=== PATIENT | female | born 1945 | race Caucasian/White ===

== ENCOUNTER 2018-12-23 19:41 | Emergency (ER) | payer OTHER, MEDICARE ==
[2018-12-23 20:02] VITALS: TEMP 98.1; BMI 24.0
[2018-12-23] MEDS ORDERED: SODIUM CHLORIDE 1,000 ML IV STA (20:58)
[2018-12-23] MEDS ORDERED: ONDANSETRON 4 MG/2 ML VIAL IVPUSH ONE (20:58)
--- NOTE | 2018-12-23 20:59 | PDOC ---
History of Present Illness - General Chief Complaint: Nausea Stated Complaint: NAUSEA Time Seen by Provider: 12/23/18 20:57 - History of Present Illness Initial Comments: 12/23/18 21:56 73F with pmh of IBS and depression rpesents to the ED complaining of now- resolved nausea, stressors at home (irrascible, unpredictable daughter) and usual cramping that she's accustomed to when she has IBS flares. This feels like an IBS flare to her. She wishes to have her abdominal cramps controlled at this time. Past History - Past Medical History Allergies/Adverse Reactions: Allergies Allergy/AdvReac Type Severity Reaction Status Date / Time codeine [Codeine] Allergy Severe Swelling, Verified 12/23/18 20:02 DIFF BREATHING latex Allergy Severe Rash, Verified 12/23/18 20:02 GENERALIZED SWELLING Home Medications: Ambulatory Orders Buspirone HCl [Buspar] 30 mg PO BID 11/19/12 Venlafaxine HCl ER [Effexor Xr -] 150 mg PO DAILY 12/22/13 Isaac/D3/Mag11/Zinc/Radiology Technologist/Jonathan/Bor [Caltrate 600+D Plus Tablet] 1 each PO DAILY 01/05 Multivitamins [Tab-A-Vit -] 1 tab PO DAILY 12/27/15 Pantoprazole Sodium [Protonix] 40 mg PO DAILY 12/27/15 Naproxen Sodium [Aleve] 220 mg PO BID #0 tablet 12/31/15 Tramadol HCl 50 - 100 mg PO Q6H PRN #40 tablet MDD 8 12/31/15 Anemia: Yes Asthma: No Cancer: No Cardiac Disorders: Yes ("IRREGULAR HEARTBEAT; BUNDLE BRANCH BLOCK") CVA: No COPD: No CHF: No Dementia: No Diabetes: No GI Disorders: Yes (IBS) Disorders: No HTN: No Hypercholesterolemia: No Liver Disease: No Seizures: No Thyroid Disease: Yes (HYPERPARATHYROIDISM) - Surgical History Abdominal Surgery: No Appendectomy: Yes Cardiac Surgery: No Cholecystectomy: Yes Lung Surgery: No Neurologic Surgery: No Orthopedic Surgery: Yes (RIGHT KNEE ARTHROSCOPY) - Suicide/Smoking/Psychosocial Hx Smoking History: Never smoked Have you smoked in the past 12 months: No Information on smoking cessation initiated: No Hx Alcohol Use: No Drug/Substance Use Hx: No Substance Use Type: None Hx Substance Use Treatment: No Review of Systems - Review of Systems Able to Perform ROS?: Yes Is the patient limited Gibraltarian proficient: No Constitutional: No: Symptoms Reported HEENTM: No: Symptoms Reported Respiratory: No: Symptoms reported Cardiac (ROS): No: Symptoms Reported ABD/GI: Yes: See HPI : No: Symptoms Reported Musculoskeletal: No: Symptoms Reported All Other Systems: Reviewed and Negative *Physical Exam - Vital Signs Last Vital Signs Temp Pulse Resp BP Pulse Ox 98.1 F 98 H 20 140/90 99 12/23/18 19:41 12/23/18 19:41 12/23/18 19:41 12/23/18 19:41 12/23/18 19:41 - Physical Exam General Appearance: Yes: Nourished, Appropriately Dressed. No: Apparent Distress HEENT: positive: EOMI, ROMA, Normal ENT Inspection Respiratory/Chest: positive: Lungs Clear, Normal Breath Sounds. negative: Chest Tender, Respiratory Distress Cardiovascular: positive: Regular Rhythm, Regular Rate, S1, S2 Gastrointestinal/Abdominal: positive: Normal Bowel Sounds, Flat, Soft. negative : Tender Extremity: positive: Normal Capillary Refill, Normal Inspection Neurologic: positive: Fully Oriented, Other (depressed affect. ) ED Treatment Course - LABORATORY CBC & Chemistry Diagram: 12/23/18 21:10 12/23/18 20:58 Medical Decision Making - Medical Decision Making 12/23/18 22:54 Unclear story whether this is IBS discomfort or psych relief from stressors that is wanted. All labs negative. Patient says she's now asymptomatic and wishes to go home. *DC/Admit/Observation/Transfer Diagnosis at time of Disposition: IBS (irritable bowel syndrome) - Discharge Dispostion Disposition: HOME Condition at time of disposition: Fair Decision to Admit order: No - Referrals Referrals: Fabio Jain MD [Primary Care Provider] - - Patient Instructions Printed Discharge Instructions: Natural and Alternative Treatment Study Report : Peppermint and Irritable Bakari Additional Instructions: Come back to the emergency department for any new, worsening or concerning symptom. Follow up with your PCP. - Post Discharge Activity
[2018-12-23] MEDS ORDERED: ONDANSETRON 4 MG/2 ML VIAL ONE (21:02)
[2018-12-23 21:29] LABS: EPI CELLS 4.4 /HPF (0-5/HPF); HYALINE CASTS 4 /lpf (0-8); URINE APPEARANCE CLEAR; URINE BACTERIA 57.1 /hpf (NEGATIVE); URINE BILIRUBIN NEGATIVE (NEGATIVE); URINE COLOR YELLOW; URINE GLUCOSE (UA) NEGATIVE (NEGATIVE); URINE KETONE 1+ (NEGATIVE); URINE LEUK ESTERASE 1+ (NEGATIVE); URINE NITRITE NEGATIVE (NEGATIVE); URINE PROTEIN 2+ (NEGATIVE); URINE RBC 3 /hpf (0-4); URINE UROBILINOGEN 0.2 mg/dL (0.2-1.0); URINE WBC 8 /hpf (0-5)
[2018-12-23 21:55] LABS: ALBUMIN 4.7 g/dl (3.4-5.0); BILIRUBIN,TOTAL 0.8 mg/dL (0.2-1); CALCIUM 9.4 mg/dL (8.5-10.1); CREATININE 0.6 mg/dL (0.55-1.3); TOT PROT 7.6 g/dl (6.4-8.2)
[2018-12-23 22:10] LABS: BASO % 0.7 % (0-2.0); EOS % 0.7 % (0-4.5); HEMATOCRIT 42.7 % (32.4-45.2); MCH 20.8 pg (25.7-33.7); MCHC 30.4 g/dl (32.0-36.0); MEAN CELL VOLUME 68.4 fl (80-96); MONO % 4.4 % (3.8-10.2); NEUT % 81.2 % (42.8-82.8); RBC 6.24 M/mm3 (3.60-5.2); RDW 17.1 % (11.6-15.6); WHITE BLOOD COUNT 11.4 K/mm3 (4.0-10.0)
[2018-12-23 22:36] LABS: PLATELET COUNT 165 K/MM3 (134-434)
[2018-12-23 22:37] LABS: ANISOCYTOSIS 1+; PLATELET ESTIMATE DECREASED
[2018-12-23 22:59] VITALS: BP 169/91; PULSE 68
--- NOTE | 2018-12-23 23:11 | PDOC ---
Documentation entered by Ciera Gaines SCRIBE, acting as scribe for Shiela Clark MD. Shiela Clark MD: This documentation has been prepared by the Eder gallego Sammi, SCRIBE, under my direction and personally reviewed by me in its entirety. I confirm that the documentation accurately reflects all work, treatment, procedures, and medical decision making performed by me. Attending Attestation - Resident Resident Name: Dax Tiwari - ED Attending Attestation I have performed the following: I have examined & evaluated the patient, The case was reviewed & discussed with the resident, I agree w/resident's findings & plan, Exceptions are as noted - HPI HPI: 12/23/18 22:17 The patient is a 73 year old female, with a significant PMH of IBS and depression, who presents to the emergency department for evaluation of now resolved nausea and vomiting. The patient states she is experiencing symptoms similar to her IBS. She denies any other complaints. - Physicial Exam PE: 12/23/18 23:03 wnwd 73 yo female states she is living with a stressful home situation . she has an episode of nausea and some epigastric discomfort head ncat eyes issac eomi lungs cta b/l cvs [id number] abd no rebound,no guarding skin warm and dry extremities no deformities, no tenderness no flank pain neuro axox3,ambulatory psych appropriate - Medical Decision Making 12/23/18 23:07 pt denies any fever,chills, dysuria, vomiting,diarrhea,chest pain or shortness of breath benign abd exam ekg nsr @ 62 bpm, LBBB 12/23/18 23:09 she said that she felt like she is starting to have problems with her IBS again pt discharged to followup with her GI doctor
--- NOTE | 2018-12-24 09:58 | EKG ---
Test Reason : Blood Pressure : / mmHG Vent. Rate : 062 BPM Atrial Rate : 062 BPM P-R Int : 176 ms QRS Dur : 158 ms QT Int : 472 ms P-R-T Axes : 052 -32 119 degrees QTc Int : 479 ms POOR DATA QUALITY, INTERPRETATION MAY BE ADVERSELY AFFECTED NORMAL SINUS RHYTHM LEFT AXIS DEVIATION LEFT BUNDLE BRANCH BLOCK ABNORMAL ECG NO PREVIOUS ECGS AVAILABLE Confirmed by MD YUDY, BEENA ([id number]) on 12/24/2018 9:58:44 AM Referred By: Confirmed By:BEENA JIMENES MD
== END 2018-12-23 23:28 | disposition home or self-care (01) ==
LOC: JER 19:41
PROC: 3E033GC Introduction of Other Therapeutic Substance into Peripheral Vein, Percutaneous Approach (ICD-10-PCS; principal; 2018-12-23)
DX: K58.9 Irritable bowel syndrome, unspecified (principal); F32.9 Major depressive disorder, single episode, unspecified; Z63.8 Other specified problems related to primary support group; Z62.820 Parent-biological child conflict
CPT/HCPCS: 36415; 80053; 81003; 85025; 87086; 93005; 93010; 96374; 99281-25; J7030

== ENCOUNTER 2018-12-30 17:40 | Emergency (ER) | payer OTHER, MEDICARE ==
[2018-12-30 17:49] VITALS: BMI 24.0
--- NOTE | 2018-12-30 18:42 | PDOC ---
History of Present Illness - General Chief Complaint: Pain Stated Complaint: ABDOMINAL PAIN Time Seen by Provider: 12/30/18 18:41 - History of Present Illness Initial Comments: 12/30/18 20:12 The patient is a 73 year old female with a history of IBS, Hyperparathyroidism, Arrhythmia who presents for evaluation of abdominal pain, nausea, and diarrhea. The patient reports a 1-2 week history of poorly described epigastric abdominal pain with associated nausea and multiple episodes of diarrhea. She presented to the ED on 12/23/18 for these same complaints and was discharged after improvement in her symptoms. However, she reports continued and worsening pain since that time prompting her presentation to the ED for further evaluation. She otherwise denies fevers, chills, SOB, chest pain, vomiting, or changes with bowel movements. She denies any exacerbating or relieving factors as well. Past History - Past Medical History Allergies/Adverse Reactions: Allergies Allergy/AdvReac Type Severity Reaction Status Date / Time codeine [Codeine] Allergy Severe Swelling, Verified 12/30/18 17:45 DIFF BREATHING latex Allergy Severe Rash, Verified 12/30/18 17:45 GENERALIZED SWELLING Home Medications: Ambulatory Orders Buspirone HCl [Buspar] 30 mg PO BID 11/19/12 Venlafaxine HCl ER [Effexor Xr -] 150 mg PO DAILY 12/22/13 Isaac/D3/Mag11/Zinc/Shift Stacker/Jonathan/Bor [Caltrate 600+D Plus Tablet] 1 each PO DAILY 01/05 Multivitamins [Tab-A-Vit -] 1 tab PO DAILY 12/27/15 Pantoprazole Sodium [Protonix] 40 mg PO DAILY 12/27/15 Naproxen Sodium [Aleve] 220 mg PO BID #0 tablet 12/31/15 Tramadol HCl 50 - 100 mg PO Q6H PRN #40 tablet MDD 8 12/31/15 Famotidine [Pepcid -] 20 mg PO DAILY #14 tablet 12/31/18 Loperamide HCl [Imodium -] 2 mg PO BID #14 capsule 12/31/18 Anemia: Yes Asthma: No Cancer: No Cardiac Disorders: Yes ("IRREGULAR HEARTBEAT; BUNDLE BRANCH BLOCK") CVA: No COPD: No CHF: No Dementia: No Diabetes: No GI Disorders: Yes (IBS) Disorders: No HTN: No Hypercholesterolemia: No Liver Disease: No Seizures: No Thyroid Disease: Yes (HYPERPARATHYROIDISM) - Surgical History Abdominal Surgery: No Appendectomy: Yes Cardiac Surgery: No Cholecystectomy: Yes Lung Surgery: No Neurologic Surgery: No Orthopedic Surgery: Yes (RIGHT KNEE ARTHROSCOPY) - Immunization History Immunization Up to Date: No - Suicide/Smoking/Psychosocial Hx Smoking History: Never smoked Have you smoked in the past 12 months: No Information on smoking cessation initiated: No Hx Alcohol Use: No Drug/Substance Use Hx: No Substance Use Type: None Hx Substance Use Treatment: No Review of Systems - Review of Systems Comments:: 12/30/18 20:20 Constitutional: No fevers, chills, fatigue, malaise HEENT: No Rhinorrhea, nasal congestion, visual changes Cardiovascular: No chest pain, syncope, palpitations, lightheadedness Respiratory: No Cough, SOB, Hemoptysis, Gastrointestinal: Abdominal pain, Nausea, Diarrhea. No Vomiting, Constipation, Melena Genitourinary: No Dysuria, Frequency, Urgency, Hesitancy, Hematuria, Flank pain Musculoskeletal: No Myalgia, arthralgia Skin: No rashes, itching, bruising, pallor Neurologic: No Headache, Dizziness, Numbness, Weakness, or Tingling Psychiatric: No Hallucinations. No SI or HI *Physical Exam - Vital Signs Last Vital Signs Temp Pulse Resp BP Pulse Ox 98.1 F 83 16 181/78 H 100 12/30/18 17:45 12/30/18 17:45 12/30/18 17:45 12/30/18 17:45 12/30/18 17:45 - Physical Exam Comments: 12/30/18 20:20 General Appearance: Nourished. No Apparent Distress HEENT: EOMI, ROMA. No Pharyngeal Erythema, Tonsillar Exudate, Tonsillar Erythema Neck: No Cervical Lymphadenopathy Respiratory/Chest: Lungs Clear, Normal Breath Sounds. No Crackles, Rales, Rhonchi, Wheezing Cardiovascular: Regular Rhythm, Regular Rate. No Murmur, Gallops, Rubs Gastrointestinal/Abdominal: Normal Bowel Sounds, Soft. Epigastric discomfort with palpation on exam. No Guarding, Rebound, Musculoskeletal: No CVA Tenderness Extremity: Normal Capillary Refill Integumentary: Normal Color, Dry, Warm Neurologic: Fully Oriented, Alert, Normal Mood/Affect, Normal Response, ED Treatment Course - LABORATORY CBC & Chemistry Diagram: 12/30/18 19:30 12/30/18 19:30 Medical Decision Making - Medical Decision Making 12/30/18 20:21 The patient is a 73 year old female with a history of IBS, Hyperparathyroidism, Arrhythmia who presents for evaluation of abdominal pain, nausea, and diarrhea. Differential includes but is not limited to: Gastritis, Pancreatitis, ACS, Colitis, Infectious, Metabolic Derangement. Given the patient's history and physical exam, we will obtain a cbc, cmp, troponing, lipase, esr, crp, lactate, ekg, CT abdomen/pelvis to evaluate further. We will treat with iv fluids, zofran, pepcid, morphine and continue to monitor and reassess while here in the ED. 12/31/18 01:11 CBC, cmp, troponin, lipase, ESRA, CRPm Lactate are unremarkable. CT abdomen/ pelvis is unremarkable as preliminarily read by our production machine tender radiologist. The patient was reassessed and reports improvement in their symptoms. We are comfortable discharging the patient home in stable condition. The patient notes that she has follow up schedule with her GI specialist in 2 days. Patient made aware of impression and plan, return precautions discussed including but not limited to worsening pain or symptoms, fevers, or signs of infection, chest pain , respiratory distress, inability to tolerate oral intake, dehydration, syncope , or neurologic changes. The patient is to follow up with PMD and specialist as recommended within 1 week, follow up information provided and the patient will call for an appointment. The patient is to take medications as instructed for duration of time and continue with supportive care, avoid triggers and precipitants. Patient is safe for outpatient follow-up. *DC/Admit/Observation/Transfer Diagnosis at time of Disposition: IBS (irritable bowel syndrome) Qualifiers: Irritable bowel syndrome type: with diarrhea Qualified Code(s): K58.0 - Irritable bowel syndrome with diarrhea - Discharge Dispostion Disposition: HOME Condition at time of disposition: Stable Decision to Admit order: No - Prescriptions Prescriptions: Famotidine [Pepcid -] 20 mg PO DAILY #14 tablet Loperamide HCl [Imodium -] 2 mg PO BID #14 capsule - Referrals Referrals: Fabio Jain MD [Primary Care Provider] - - Patient Instructions Printed Discharge Instructions: DI for Irritable Bowel Syndrome Additional Instructions: 1) Please follow-up with your primary care doctor in the next 2-3 days. Please call tomorrow to schedule a follow up appointment. If you cannot follow up with your doctor within 1 week please return to the Emergency Department for any urgent issues. 2) Your laboratory / imaging results were normal here in the ER. You are to keep your follow up appointment with your GI specialist in 2 days. 3) If you have any worsening of symptoms or any other concerns please return to the ER immediately. Return if worsening symptoms including fevers, headache, vomiting, visual or hearing disturbances, abdominal pain, chest pain, shortness of breath, syncope, dehydration, inability to take things by mouth/vomiting, altered mental status, or worsening concerning symptoms. 4) Please continue taking your home medications as directed. Your medications on discharge include Imodium, Pepcid. - Post Discharge Activity
[2018-12-30] MEDS ORDERED: FAMOTIDINE 20 MG/50 ML IVPB 20 MG/50 ML MG IVPB ONE ×2 (19:01→19:42)
[2018-12-30] MEDS ORDERED: ACETAMINOPHEN 1000 MG/100 ML VIAL (NON FORMULARY) IVPB ONE (19:01)
[2018-12-30] MEDS ORDERED: ONDANSETRON 4 MG/2 ML VIAL IVPUSH ONE (19:01)
[2018-12-30] MEDS ORDERED: SODIUM CHLORIDE 1,000 ML IV STA (19:01)
[2018-12-30 19:33] VITALS: PULSE 84
[2018-12-30] MEDS ORDERED: ACETAMINOPHEN INJECTION 100 ML IVPB ONE (19:41)
[2018-12-30] MEDS ORDERED: ONDANSETRON 4 MG/2 ML VIAL ONE (19:41)
[2018-12-30 19:56] LABS: BASO % 0.7 % (0-2.0); EOS % 0.4 % (0-4.5); HEMATOCRIT 38.8 % (32.4-45.2); LYMPH % 11.5 % (8-40); MCH 20.9 pg (25.7-33.7); MCHC 30.8 g/dl (32.0-36.0); MEAN CELL VOLUME 67.8 fl (80-96); MEAN PLT VOLUME 11.4 fl (7.5-11.1); MONO % 6.1 % (3.8-10.2); NEUT % 81.3 % (42.8-82.8); PLATELET COUNT 150 K/MM3 (134-434); RBC 5.73 M/mm3 (3.60-5.2); RDW 16.6 % (11.6-15.6); WHITE BLOOD COUNT 7.6 K/mm3 (4.0-10.0)
[2018-12-30] MEDS ORDERED: morphine CARPU-JECT 4 MG/1 ML DISP.SYRIN IVPUSH ONE (20:10)
[2018-12-30 20:35] LABS: ALBUMIN 4.1 g/dl (3.4-5.0); ALK PHOS 63 U/L (45-117); ANION GAP 4 MMOL/L (8-16); BILIRUBIN,TOTAL 0.9 mg/dL (0.2-1); BLOOD UREA NITROGEN 9.6 mg/dL (7-18); CALCIUM 9.4 mg/dL (8.5-10.1); CHLORIDE 106 mmol/L (98-107); CO2 28 mmol/L (21-32); CREATININE 0.6 mg/dL (0.55-1.3); GLUCOSE,RANDOM 108 mg/dL (74-106); LIPASE 134 U/L (73-393); POTASSIUM 3.4 mmol/L (3.5-5.1); SGOT/AST 77 U/L (15-37); SGPT/ALT 52 U/L (13-61); SODIUM 137 mmol/L (136-145); TOT PROT 6.9 g/dl (6.4-8.2)
[2018-12-30] MEDS ORDERED: MORPHINE SULFATE 2 MG/ML VIAL ONE (20:50)
[2018-12-30 21:19] LABS: ERYTHROCYTE SEDIMENTATION RATE 23 mm/hr (0-30)
[2018-12-30] MEDS ORDERED: MAG HYDROX/AL HYDROX/SIMETH 30 ML UNIT-DOSE CUP PO ONE (22:05)
[2018-12-30] MEDS ORDERED: POTASSIUM CHLORIDE TABS 20 MEQ TABLET.ER (FP) PO ONE ×2 (22:05→23:28)
[2018-12-30] MEDS ORDERED: MAG HYDROX/AL HYDROX/SIMETH 30 ML UNIT-DOSE CUP ONE (23:29)
[2018-12-30 23:32] LABS: ANISOCYTOSIS 1+
--- NOTE | 2018-12-31 00:35 | PDOC ---
Documentation entered by Meera Barnard SCRIBE, acting as scribe for Shiela Clark MD. Shiela Clark MD: This documentation has been prepared by the Evon gallego Adrianna, SCRIBE, under my direction and personally reviewed by me in its entirety. I confirm that the documentation accurately reflects all work, treatment, procedures, and medical decision making performed by me. Attending Attestation - Resident Resident Name: Damian Kirby - ED Attending Attestation I have performed the following: I have examined & evaluated the patient, The case was reviewed & discussed with the resident, I agree w/resident's findings & plan, Exceptions are as noted - HPI HPI: The patient is a 73 year old female, with a significant PMH of bundle branch block, IBS, and depression, who presents to the emergency department today complaining of abdominal pain, nausea, and diarrhea for one week. Patient was seen in the ED one week ago for the same complaints, and states she felt better during her visit but her symptoms returned after leaving. She endorses epigastric cramping, which induces nausea. Patient also complains of profuse diarrhea since her last visit. The patient denies chest pain, shortness of breath, headache and dizziness. Denies fever, chills, vomit, and constipation. Denies dysuria, frequency, urgency and hematuria. Allergies: Codeine, latex Past surgical history: Cholecystectomy, right knee arthroscopy Social history: No reported PCP: Dr. Fabio Jain 12/30/18 19:52 - Physicial Exam PE: 12/30/18 19:35 This 73-year-old female presents with persistent epigastric pain, nausea and diarrhea for one week Head normocephalic/atraumatic. eyes issac eomi Neck supple, no bruits. Lungs are clear to auscultation bilaterally CVS regular rate and rhythm S1, S2 Abdomen epigastric epigastric tenderness but no rebound or guarding. Skin warm and dry. Extremities full range of motion, no edema and no deformity. No CVA tenderness. Psych anxious - Medical Decision Making 12/30/18 19:36 73 yo female with h/o IBS and 1 week of upper abd pain,nausea,diarrhea 12/31/18 01:14 labs reviewed lfts and glucose and renal function are wnl ct scan abd/pel: no sbo,no colitis.no diverticulitis,no masses,no fluid collections,liquid stool noted pt had an appt with her GI specialist this Sun imp diarrhea plan GI appt this Sun
[2018-12-31 01:30] VITALS: BP 164/70; TEMP 97.4
--- NOTE | 2018-12-31 12:44 | EKG ---
Test Reason : Blood Pressure : / mmHG Vent. Rate : 084 BPM Atrial Rate : 084 BPM P-R Int : 164 ms QRS Dur : 146 ms QT Int : 418 ms P-R-T Axes : 057 -36 116 degrees QTc Int : 493 ms SINUS RHYTHM WITH PREMATURE ATRIAL COMPLEXES LEFT AXIS DEVIATION LEFT BUNDLE BRANCH BLOCK LEFT VENTRICULAR HYPERTROPHY WITH QRS WIDENING AND REPOLARIZATION ABNORMALITY ABNORMAL ECG Confirmed by Igor Avery MD ([id number]) on 12/31/2018 12:43:56 PM Referred By: Confirmed By:Igor Avery MD
== END 2018-12-31 01:30 | disposition home or self-care (01) ==
LOC: JER 17:40
PROC: 3E0337Z Introduction of Electrolytic and Water Balance Substance into Peripheral Vein, Percutaneous Approach (ICD-10-PCS; principal; 2018-12-30)
PROC: 3E033GC Introduction of Other Therapeutic Substance into Peripheral Vein, Percutaneous Approach (ICD-10-PCS; 2018-12-30)
PROC: 3E033GC Introduction of Other Therapeutic Substance into Peripheral Vein, Percutaneous Approach (ICD-10-PCS; 2018-12-30)
PROC: 3E033NZ Introduction of Analgesics, Hypnotics, Sedatives into Peripheral Vein, Percutaneous Approach (ICD-10-PCS; 2018-12-30)
DX: K58.0 Irritable bowel syndrome with diarrhea (principal); E21.3 Hyperparathyroidism, unspecified; Z86.79 Personal history of other diseases of the circulatory system; E87.6 Hypokalemia
CPT/HCPCS: 36415; 74177-TC; 80053; 82550; 83605; 83690; 84484; 85025; 85651; 86140; 93005; 93010; 96361; 96365; 96375; 99282-25; J7030

== ENCOUNTER 2020-12-31 04:23 | Day surgery (SDC) | payer OTHER, MEDICARE ==
[2020-12-30 08:28] VITALS: BMI 25.7
[2020-12-31] MEDS ORDERED: LIDOCAINE HCL/PF 1% SDV 5ML VIAL ONE (07:17)
[2020-12-31] MEDS ORDERED: BUPIVACAINE HCL/PF 0.75% 10 ML VIAL ONE (07:17)
[2020-12-31] MEDS ORDERED: LIDOCAINE HCL 1% PRESERVATIVE FREE - 30ML VIAL IJ ONE (08:35)
[2020-12-31] MEDS ORDERED: IOHEXOL 180 MG/1 ML ML IJ ONE ×3 (08:37→08:42)
[2020-12-31] MEDS ORDERED: BUPIVACAINE HCL/PF 0.75% 10 ML VIAL NR ONE ×2 (08:38→08:45)
[2020-12-31 09:01] VITALS: BP 138/54; PULSE 18; TEMP 98.2
== END 2020-12-31 09:36 | disposition home or self-care (01) ==
LOC: JASU-SURG 04:23
PROVIDERS: ATTEND Pain Medicine Pain Medicine
PROC: BR16YZZ Fluoroscopy of Lumbar Facet Joint(s) using Other Contrast (ICD-10-PCS; 2020-12-31)
PROC: 3E0T3BZ Introduction of Anesthetic Agent into Peripheral Nerves and Plexi, Percutaneous Approach (ICD-10-PCS; principal; 2020-12-31 08:30)
DX: M47.816 Spondylosis without myelopathy or radiculopathy, lumbar region (principal)
CPT/HCPCS: 76000-TC-FY

== ENCOUNTER 2021-02-25 04:31 | Day surgery (SDC) | payer OTHER, MEDICARE ==
[2021-02-24 14:01] VITALS: BMI 24.0
[2021-02-25] MEDS ORDERED: LIDOCAINE HCL/PF 1% SDV 5ML VIAL ONE (07:35)
[2021-02-25] MEDS ORDERED: BUPIVACAINE HCL/PF 0.75% 10 ML VIAL ONE (07:36)
[2021-02-25] MEDS ORDERED: LIDOCAINE HCL 1%, 10 MG/ML (20ML VIAL) INF ONE (09:59)
[2021-02-25] MEDS ORDERED: BUPIVACAINE HCL/PF 0.75% 10 ML VIAL NR ONE ×3 (10:00→10:05)
[2021-02-25] MEDS ORDERED: IOHEXOL 180 MG/1 ML ML IJ ONE ×2 (10:00→10:02)
[2021-02-25 12:19] VITALS: BP 156/78; PULSE 72; TEMP 97.9
== END 2021-02-25 11:05 | disposition home or self-care (01) ==
LOC: JASU-SURG 04:31
PROVIDERS: ATTEND Pain Medicine Pain Medicine
PROC: 3E0T33Z Introduction of Anti-inflammatory into Peripheral Nerves and Plexi, Percutaneous Approach (ICD-10-PCS; 2021-02-25)
PROC: 3E0T3BZ Introduction of Anesthetic Agent into Peripheral Nerves and Plexi, Percutaneous Approach (ICD-10-PCS; principal; 2021-02-25 09:00)
DX: M47.816 Spondylosis without myelopathy or radiculopathy, lumbar region (principal)
CPT/HCPCS: 76000-TC-FY

== ENCOUNTER → 2021-03-30 | Emergency (ER) | payer OTHER, MEDICARE ==
[2021-03-30 14:22] VITALS: BP 174/76; PULSE 74; TEMP 97.6; BMI 24.0
== END ==
LOC: JER 14:15
DX: S09.90XA Unspecified injury of head, initial encounter (principal); R42 Dizziness and giddiness; W01.0XXA Fall on same level from slipping, tripping and stumbling without subsequent striking against object, initial encounter; Y93.H2 Activity, gardening and landscaping
CPT/HCPCS: 93005; 93010; 99281-25

== ENCOUNTER 2021-04-05 04:38 | Day surgery (SDC) | payer OTHER, MEDICARE ==
[2021-03-31 10:22] VITALS: BMI 24.0
[2021-04-05] MEDS ORDERED: LIDOCAINE HCL/PF 1% SDV 5ML VIAL ONE ×2 (08:51→09:33)
[2021-04-05] MEDS ORDERED: LIDOCAINE HCL/PF 2% SDV 5ML VIAL ONE (08:51)
[2021-04-05] MEDS ORDERED: IOHEXOL 180 MG/1 ML ML IJ ONE (09:30)
[2021-04-05] MEDS ORDERED: LIDOCAINE HCL 1% PRESERVATIVE FREE - 30ML VIAL IJ ONE (09:30)
[2021-04-05] MEDS ORDERED: BUPIVACAINE 0.75% IN DEXTROSE/PF 2ML AMPULE NR ONE (09:30)
[2021-04-05] MEDS ORDERED: DEXAMETHASONE SOD PHOSPHATE 10 MG/1 ML VIAL IVPUSH ONE (09:30)
[2021-04-05] MEDS ORDERED: LIDOCAINE HCL/PF 2% SDV 5ML VIAL SQ ONE (09:30)
[2021-04-05] MEDS ORDERED: DEXAMETHASONE SOD PHOSPHATE 10 MG/1 ML VIAL ONE (09:33)
[2021-04-05] MEDS ORDERED: BUPIVACAINE HCL/PF 0.75% 10 ML VIAL ONE (09:33)
[2021-04-05 12:14] VITALS: BP 144/70; PULSE 68; TEMP 98.3
== END 2021-04-05 11:50 | disposition home or self-care (01) ==
LOC: JASU-SURG 04:38
PROVIDERS: ATTEND Pain Medicine Pain Medicine
PROC: 3E0T3TZ Introduction of Destructive Agent into Peripheral Nerves and Plexi, Percutaneous Approach (ICD-10-PCS; principal; 2021-04-05 09:15)
DX: M47.816 Spondylosis without myelopathy or radiculopathy, lumbar region (principal)
CPT/HCPCS: 76000-TC-FY; J1100

== ENCOUNTER 2021-07-26 04:27 | Day surgery (SDC) | payer OTHER, MEDICARE, BC ==
[2021-07-25 15:24] VITALS: BMI 24.0
[2021-07-26] MEDS ORDERED: LIDOCAINE HCL/PF 1% SDV 5ML VIAL ONE (07:29)
[2021-07-26] MEDS ORDERED: DEXAMETHASONE SOD PHOSPHATE 10 MG/1 ML VIAL ONE (07:29)
[2021-07-26] MEDS ORDERED: BUPIVACAINE HCL/PF 0.75% 10 ML VIAL ONE (07:30)
[2021-07-26 12:21] VITALS: BP 154/67; PULSE 71; TEMP 97.8
== END 2021-07-26 13:00 | disposition home or self-care (01) ==
LOC: JASU-SURG 04:27
PROVIDERS: ATTEND Pain Medicine Pain Medicine
PROC: 3E0T33Z Introduction of Anti-inflammatory into Peripheral Nerves and Plexi, Percutaneous Approach (ICD-10-PCS; 2021-07-26)
PROC: 3E0T3TZ Introduction of Destructive Agent into Peripheral Nerves and Plexi, Percutaneous Approach (ICD-10-PCS; principal; 2021-07-26 10:30)
PROC: 3E0T3BZ Introduction of Anesthetic Agent into Peripheral Nerves and Plexi, Percutaneous Approach (ICD-10-PCS; 2021-07-26 10:30)
DX: M47.816 Spondylosis without myelopathy or radiculopathy, lumbar region (principal)
CPT/HCPCS: 76000-TC-FY; J1100

== ENCOUNTER 2021-08-05 15:42 | Emergency (ER) | payer OTHER, MEDICARE, BC ==
[2021-08-05 16:24] VITALS: BP 157/71; PULSE 82; TEMP 99.4; BMI 27.4
[2021-08-05] MEDS ORDERED: MECLIZINE HCL 25 MG TABLET (FP) PO ONE (17:13)
[2021-08-05] MEDS ORDERED: MECLIZINE HCL 25 MG TABLET (FP) ONE (17:19)
[2021-08-05 18:04] LABS: BASO % 0.7 % (0-2.0); EOS % 0.1 % (0-4.5); HEMATOCRIT 37.5 % (32.4-45.2); LYMPH % 10.2 % (8-40); MCH 21.2 pg (25.7-33.7); MEAN CELL VOLUME 66.1 fl (80-96); PLATELET COUNT 179 10^3/uL (134-434); RBC 5.67 M/mm3 (3.60-5.2); RDW 17.5 % (11.6-15.6); WHITE BLOOD COUNT 10.7 K/mm3 (4.0-10.0)
[2021-08-05 18:11] LABS: INR 1.08 (0.83-1.09); PROTHROMBIN TIME (PATIENT) 12.4 SEC (9.7-13.0)
[2021-08-05 18:14] LABS: ACTIVATED PTT 28.5 SECONDS (25.2-36.5)
[2021-08-05] MEDS ORDERED: LACTATED RINGERS SOLUTION 1000 ML INFUS.BAG IV ONE (18:18)
[2021-08-05 18:24] LABS: CHLORIDE 106 mmol/L (98-107); SODIUM 140 mmol/L (136-145)
[2021-08-05 18:26] LABS: ANION GAP 9 MMOL/L (8-16); CALCIUM 9.9 mg/dL (8.5-10.1); CO2 25 mmol/L (21-32)
[2021-08-05 18:27] LABS: ALBUMIN 4.4 g/dl (3.4-5.0); GLUCOSE,RANDOM 104 mg/dL (74-106); MAGNESIUM 2.2 mg/dL (1.8-2.4)
[2021-08-05 18:30] LABS: CREATININE 0.8 mg/dL (0.55-1.3); SGOT/AST 122 U/L (15-37); SGPT/ALT 24 U/L (13-61)
[2021-08-05 18:31] LABS: TOT PROT 7.1 g/dl (6.4-8.2)
[2021-08-05 18:32] LABS: ALK PHOS 82 U/L (45-117)
[2021-08-05 18:53] LABS: ANISOCYTOSIS 2+; MACROCYTOSIS 0; PLATELET ESTIMATE NORMAL
== END 2021-08-05 20:24 | disposition home or self-care (01) ==
LOC: JER 15:42
DX: R42 Dizziness and giddiness (principal)
CPT/HCPCS: 36415; 70450-TC; 71046-TC-FY; 80053; 82550; 82607; 83735; 84484; 85025; 85610; 85730; 93005; 93010; 99284-25; C9803-CS; U0003; U0005

== ENCOUNTER 2021-08-19 04:23 | Day surgery (SDC) | payer OTHER, MEDICARE, BC ==
[2021-08-17 12:43] VITALS: BMI 24.0
[~2021-08-19 04:23] MED LIST: BUPIVACAINE HCL/PF 0.75% 10 ML VIAL NR ONE; DEXAMETHASONE SOD PHOSPHATE 10 MG/1 ML VIAL IM ONE; IOHEXOL 180 MG/1 ML ML IJ ONE; LIDOCAINE HCL/PF 2% SDV 5ML VIAL INF ONE
[2021-08-19] MEDS ORDERED: BUPIVACAINE HCL/PF 0.5% (5MG/ML) 10 ML VIAL ONE (07:35)
[2021-08-19] MEDS ORDERED: LIDOCAINE HCL/PF 1% SDV 5ML VIAL ONE (07:35)
[2021-08-19] MEDS ORDERED: LIDOCAINE HCL 1% PRESERVATIVE FREE - 30ML VIAL IJ ONE (12:42)
[2021-08-19] MEDS ORDERED: LIDOCAINE HCL/PF 2% SDV 5ML VIAL INF ONE (12:57)
[2021-08-19] MEDS ORDERED: IOHEXOL 180 MG/1 ML ML IJ ONE (12:57)
[2021-08-19] MEDS ORDERED: BUPIVACAINE HCL/PF 0.75% 10 ML VIAL NR ONE (13:12)
[2021-08-19] MEDS ORDERED: DEXAMETHASONE SOD PHOSPHATE 10 MG/1 ML VIAL IM ONE (13:12)
[2021-08-19 14:09] VITALS: BP 138/87; PULSE 76; TEMP 97.5
== END 2021-08-19 14:53 | disposition home or self-care (01) ==
LOC: JASU-SURG 04:23
PROVIDERS: ATTEND Pain Medicine Pain Medicine
PROC: 3E0T3TZ Introduction of Destructive Agent into Peripheral Nerves and Plexi, Percutaneous Approach (ICD-10-PCS; principal; 2021-08-19 12:00)
DX: M25.561 Pain in right knee (principal)
CPT/HCPCS: 76000-TC-FY; J1100

== ENCOUNTER 2022-03-01 04:13 | Day surgery (SDC) | payer OTHER, BC, MEDICARE ==
[2022-02-28 09:15] VITALS: BMI 24.9
[2022-03-01] MEDS ORDERED: BUPIVACAINE HCL/PF 0.5% (5MG/ML) 10 ML VIAL ONE (07:23)
[2022-03-01] MEDS ORDERED: PROPOFOL 60 ML ONE (07:42)
[2022-03-01] MEDS ORDERED: DEXAMETHASONE SOD PHOSPHATE 4 MG/1 ML VIAL ONE (07:43)
[2022-03-01] MEDS ORDERED: ceFAZolin SODIUM 1 GM VIAL ONE (07:43)
[2022-03-01] MEDS ORDERED: LIDOCAINE HCL/PF 2% SDV 5ML VIAL ONE (07:43)
[2022-03-01] MEDS ORDERED: ONDANSETRON 4 MG/2 ML VIAL ONE (07:43)
[2022-03-01] MEDS ORDERED: ceFAZolin SODIUM 1 GM VIAL IVPB ONE (08:20)
[2022-03-01] MEDS ORDERED: BUPIVACAINE HCL/PF 0.5% (5MG/ML) 10 ML VIAL IJ ONE (08:55)
[2022-03-01] MEDS ORDERED: oxyCODONE HCL 5 MG TABLET PO PRN ×2 (09:36)
[2022-03-01] MEDS ORDERED: ONDANSETRON 4 MG/2 ML VIAL IVPUSH PRN (09:36)
[2022-03-01] MEDS ORDERED: LABETALOL HCL 5 MG/1 ML (100MG/20 ML VIAL) IVPUSH ONE (09:37)
[2022-03-01] MEDS ORDERED: MIDAZOLAM HCL 2 MG/2 ML SINGLE DOSE VIAL IVPUSH ONE (09:37)
[2022-03-01] MEDS ORDERED: LACTATED RINGERS SOLUTION 1,000 ML IV SCH (09:45)
[2022-03-01 10:10] VITALS: RESP 18
[2022-03-01 14:02] VITALS: BP 146/54; PULSE 84; TEMP 97.9
== END 2022-03-01 15:35 | disposition home or self-care (01) ==
LOC: JASU-SURG 04:13
PROVIDERS: ATTEND Orthopaedic Surgery
PROC: 0SBC4ZZ Excision of Right Knee Joint, Percutaneous Endoscopic Approach (ICD-10-PCS; 2022-03-01)
PROC: 0SBC4ZZ Excision of Right Knee Joint, Percutaneous Endoscopic Approach (ICD-10-PCS; principal; 2022-03-01 08:00)
DX: S83.281A Other tear of lateral meniscus, current injury, right knee, initial encounter (principal); S83.241A Other tear of medial meniscus, current injury, right knee, initial encounter; M17.11 Unilateral primary osteoarthritis, right knee; X58.XXXA Exposure to other specified factors, initial encounter; Y93.9 Activity, unspecified; Y92.9 Unspecified place or not applicable; Y99.9 Unspecified external cause status
CPT/HCPCS: 94760

== ENCOUNTER 2022-07-11 21:50 | Emergency (ER) | payer OTHER, BC, MEDICARE ==
[2022-07-11 22:14] VITALS: BMI 25.7
[2022-07-11] MEDS ORDERED: ACETAMINOPHEN 325 MG TABLET (FP) PO ONE (23:16)
[2022-07-12 11:33] LABS: EOS % 0.8 % (0-4.5); HEMOGLOBIN 10.8 GM/dL (10.7-15.3); LYMPH % 20.2 % (8-40); MCH 20.5 pg (25.7-33.7); MEAN CELL VOLUME 66.3 fl (80-96); MEAN PLT VOLUME 10.3 fl (7.5-11.1); MONO % 6.4 % (3.8-10.2); NEUT % 71.6 % (42.8-82.8); PLATELET COUNT 144 10^3/uL (134-434); RBC 5.28 M/mm3 (3.60-5.2); RDW 16.9 % (11.6-15.6); WHITE BLOOD COUNT 5.5 K/mm3 (4.0-10.0)
[2022-07-12 11:57] LABS: ALBUMIN 3.6 g/dl (3.4-5.0); BLOOD UREA NITROGEN 10.6 mg/dL (7-18)
[2022-07-12 12:00] LABS: CREATININE 0.5 mg/dL (0.55-1.3)
[2022-07-12 12:01] LABS: BILIRUBIN,TOTAL 0.5 mg/dL (0.2-1); TOT PROT 6.3 g/dl (6.4-8.2)
[2022-07-12 12:20] LABS: ANISOCYTOSIS 2+; MACROCYTOSIS 0; OVALOCYTE 2+; TEAR DROP CELLS 1+
[2022-07-12 17:03] VITALS: TEMP 98.7
[2022-07-12] MEDS ORDERED: busPIRone HCL 5 MG TABLET PO SCH (22:00)
[2022-07-12 22:37] VITALS: BP 145/70; PULSE 80; RESP 18
== END 2022-07-12 22:37 | disposition home or self-care (01) ==
LOC: JER 21:50 → JERFT 21:50 → JER 07-12 22:37
DX: S83.001A Unspecified subluxation of right patella, initial encounter (principal); W01.0XXA Fall on same level from slipping, tripping and stumbling without subsequent striking against object, initial encounter
CPT/HCPCS: 36415; 70450-TC; 72125-TC; 73562-TC-LT-FY; 73562-TC-RT-FY; 80053; 85025; 93005; 93010; 99285-25; C9803-CS; U0003; U0005

== ENCOUNTER 2022-07-25 11:43 | Observation (INO) | payer OTHER, MEDICARE ==
[2022-07-25] MEDS ORDERED: ACETAMINOPHEN 1000 MG/100 ML BAG IVPB ONE (12:34)
[2022-07-25] MEDS ORDERED: ACETAMINOPHEN INJECTION 100 ML IVPB ONE (12:49)
[2022-07-25 13:55] LABS: BASO % 0.9 % (0-2.0); EOS % 0.5 % (0-4.5); HEMATOCRIT 35.8 % (32.4-45.2); HEMOGLOBIN 10.9 GM/dL (10.7-15.3); LYMPH % 10.9 % (8-40); MCH 20.4 pg (25.7-33.7); MCHC 30.5 g/dl (32.0-36.0); MEAN CELL VOLUME 67.1 fl (80-96); MONO % 5.3 % (3.8-10.2); NEUT % 82.4 % (42.8-82.8); RBC 5.33 M/mm3 (3.60-5.2); RDW 16.7 % (11.6-15.6); WHITE BLOOD COUNT 6.3 K/mm3 (4.0-10.0)
[2022-07-25 14:00] LABS: PLATELET COUNT 147 10^3/uL (134-434)
[2022-07-25 14:01] LABS: INR 1.01 (0.83-1.09); PROTHROMBIN TIME (PATIENT) 11.6 SEC (9.7-13.0)
[2022-07-25 14:03] LABS: ACTIVATED PTT 30.1 SECONDS (25.2-36.5)
[2022-07-25 14:24] LABS: ANISOCYTOSIS 2+; MACROCYTOSIS 0; PLATELET ESTIMATE DECREASED; TARGET CELLS 1+; TEAR DROP CELLS 1+
[2022-07-25 14:25] LABS: CHLORIDE 107 mmol/L (98-107); SODIUM 138 mmol/L (136-145)
[2022-07-25 14:27] LABS: CALCIUM 8.9 mg/dL (8.5-10.1)
[2022-07-25 14:28] LABS: ALBUMIN 3.5 g/dl (3.4-5.0); BLOOD UREA NITROGEN 13.4 mg/dL (7-18); CO2 25 mmol/L (21-32); GLUCOSE,RANDOM 91 mg/dL (74-106)
[2022-07-25 14:31] LABS: CREATININE 0.5 mg/dL (0.55-1.3); SGOT/AST 96 U/L (15-37)
[2022-07-25 14:32] LABS: BILIRUBIN,TOTAL 0.5 mg/dL (0.2-1)
[2022-07-25 14:34] LABS: ALK PHOS 74 U/L (45-117); ANION GAP 6 MMOL/L (8-16); SGPT/ALT 24 U/L (13-61)
[2022-07-26 08:29] LABS: EOS % 0.8 % (0-4.5); HEMATOCRIT 32.8 % (32.4-45.2); LYMPH % 22.3 % (8-40); MCH 20.4 pg (25.7-33.7); MCHC 30.5 g/dl (32.0-36.0); MEAN CELL VOLUME 66.7 fl (80-96); MONO % 7.8 % (3.8-10.2); NEUT % 68.1 % (42.8-82.8); RBC 4.92 M/mm3 (3.60-5.2); RDW 16.7 % (11.6-15.6); WHITE BLOOD COUNT 4.6 K/mm3 (4.0-10.0)
[2022-07-26 08:51] LABS: BLOOD UREA NITROGEN 10.2 mg/dL (7-18)
[2022-07-26 08:52] LABS: ALBUMIN 3.4 g/dl (3.4-5.0); CALCIUM 8.9 mg/dL (8.5-10.1); MAGNESIUM 2.1 mg/dL (1.8-2.4)
[2022-07-26 08:53] LABS: BILIRUBIN,TOTAL 0.4 mg/dL (0.2-1)
[2022-07-26 08:55] LABS: CREATININE 0.4 mg/dL (0.55-1.3)
[2022-07-26 10:03] LABS: MEAN PLT VOLUME 10.8 fl (7.5-11.1); PLATELET COUNT 141 10^3/uL (134-434)
[2022-07-26] MEDS: busPIRone HCL 10 MG TABLET (FP) PO SCH (11:06)
[2022-07-26] MEDS ORDERED: PATIENT'S OWN MEDICATION (NON-FORMULARY) (Carbidopa/Levodopa [Rytary Er 23.75 Mg-95 Mg Cap PO SCH (14:00)
[2022-07-26] MEDS ORDERED: CEFTRIAXONE 1 GM in DEXTROSE 5%-WATER - 50 ML IVPB ONE (19:28)
[2022-07-27 01:28] LABS: EPI CELLS 15 /uL (0-25.1); HYALINE CASTS 1 /uL (0-3.1); PH,URINE 6.5 (5.0-8.0); URINE APPEARANCE CLEAR; URINE BACTERIA 74 /uL (0-1359); URINE BILIRUBIN NEGATIVE (NEGATIVE); URINE COLOR YELLOW; URINE GLUCOSE (UA) NEGATIVE (NEGATIVE); URINE KETONE NEGATIVE (NEGATIVE); URINE LEUK ESTERASE 2+ (NEGATIVE); URINE NITRITE NEGATIVE (NEGATIVE); URINE PROTEIN NEGATIVE (NEGATIVE); URINE RBC 27 /uL (0-23.9); URINE UROBILINOGEN 0.2 mg/dL (0.2-1.0); URINE WBC 228 /uL (0-25.8)
[2022-07-27] MEDS ORDERED: ONDANSETRON 4 MG/2 ML VIAL IVPUSH ONE (02:00)
[2022-07-27] MEDS: busPIRone HCL 10 MG TABLET (FP) PO SCH (10:35)
[2022-07-27] MEDS: ENOXAPARIN NA (PORCINE) 40 MG/0.4 ML DISP.SYRIN SQ SCH (10:35)
[2022-07-27] MEDS: CEFTRIAXONE 1 GM in DEXTROSE 5%-WATER - 50 ML IVPB SCH (10:35)
[2022-07-27] MEDS: traMADol HCL 50 MG TABLET PO PRN (22:23)
[2022-07-28] MEDS: CEFTRIAXONE 1 GM in DEXTROSE 5%-WATER - 50 ML IVPB SCH (09:31)
[2022-07-28] MEDS: busPIRone HCL 10 MG TABLET (FP) PO SCH (09:31)
[2022-07-28] MEDS: ENOXAPARIN NA (PORCINE) 40 MG/0.4 ML DISP.SYRIN SQ SCH (09:31)
[2022-07-28] MEDS: traMADol HCL 50 MG TABLET PO PRN ×2 (11:05→20:45)
[2022-07-28] MEDS: ESCITALOPRAM OXALATE 10 MG TABLET PO SCH (11:06)
[2022-07-28] MEDS ORDERED: LORazepam 2 MG/ML SDV VIAL IVPUSH PRN (14:44)
[2022-07-28] MEDS ORDERED: ACETAMINOPHEN 1000 MG/100 ML BAG IVPB PRN (14:46)
[2022-07-29] MEDS: ENOXAPARIN NA (PORCINE) 40 MG/0.4 ML DISP.SYRIN SQ SCH (09:27)
[2022-07-29] MEDS: busPIRone HCL 10 MG TABLET (FP) PO SCH (09:27)
[2022-07-29] MEDS: ESCITALOPRAM OXALATE 10 MG TABLET PO SCH (09:27)
[2022-07-29] MEDS: traMADol HCL 50 MG TABLET PO PRN (21:52)
[2022-07-30] MEDS: ENOXAPARIN NA (PORCINE) 40 MG/0.4 ML DISP.SYRIN SQ SCH (09:30)
[2022-07-30] MEDS: ESCITALOPRAM OXALATE 10 MG TABLET PO SCH (09:30)
[2022-07-30] MEDS: busPIRone HCL 10 MG TABLET (FP) PO SCH (09:30)
[2022-07-30] MEDS: traMADol HCL 50 MG TABLET PO PRN (20:24)
[2022-07-31] MEDS: ESCITALOPRAM OXALATE 10 MG TABLET PO SCH (09:33)
[2022-07-31] MEDS: busPIRone HCL 10 MG TABLET (FP) PO SCH (09:34)
[2022-07-31] MEDS: ENOXAPARIN NA (PORCINE) 40 MG/0.4 ML DISP.SYRIN SQ SCH ×2 (09:34→09:42)
[2022-07-31] MEDS ORDERED: NAPROXEN 250 MG TABLET PO ONE (23:36)
[2022-07-31] MEDS ORDERED: MELATONIN 5 MG TABLETS PO ONE (23:36)
[2022-08-01] MEDS: busPIRone HCL 10 MG TABLET (FP) PO SCH (09:30)
[2022-08-01] MEDS: ESCITALOPRAM OXALATE 10 MG TABLET PO SCH (09:30)
[2022-08-01] MEDS: ENOXAPARIN NA (PORCINE) 40 MG/0.4 ML DISP.SYRIN SQ SCH (09:30)
[2022-08-01] MEDS ORDERED: NAPROXEN 250 MG TABLET PO PRN (11:43)
[2022-08-01] MEDS: clonazePAM 0.5 MG TABLET PO PRN (12:09)
[2022-08-01] MEDS ORDERED: HALOPERIDOL LACTATE 5 MG/ML IM ONE (18:05)
[2022-08-02] MEDS: busPIRone HCL 10 MG TABLET (FP) PO SCH (09:47)
[2022-08-02] MEDS: ESCITALOPRAM OXALATE 10 MG TABLET PO SCH (09:47)
[2022-08-02] MEDS: ENOXAPARIN NA (PORCINE) 40 MG/0.4 ML DISP.SYRIN SQ SCH ×2 (09:47→09:49)
[2022-08-02] MEDS: MELATONIN 5 MG TABLETS PO PRN (21:47)
[2022-08-03] MEDS: ESCITALOPRAM OXALATE 10 MG TABLET PO SCH (09:22)
[2022-08-03] MEDS: busPIRone HCL 10 MG TABLET (FP) PO SCH (09:22)
[2022-08-03] MEDS: MELATONIN 5 MG TABLETS PO PRN (22:24)
[2022-08-03] MEDS: clonazePAM 0.5 MG TABLET PO PRN (22:24)
[2022-08-04] MEDS: ESCITALOPRAM OXALATE 10 MG TABLET PO SCH (10:44)
[2022-08-04] MEDS: busPIRone HCL 10 MG TABLET (FP) PO SCH (10:44)
[2022-08-04] MEDS: clonazePAM 0.5 MG TABLET PO PRN ×2 (12:26→20:45)
[2022-08-04] MEDS: MELATONIN 5 MG TABLETS PO PRN (20:45)
[2022-08-05] MEDS: busPIRone HCL 10 MG TABLET (FP) PO SCH (09:51)
[2022-08-05] MEDS: ESCITALOPRAM OXALATE 10 MG TABLET PO SCH (09:51)
[2022-08-05] MEDS: clonazePAM 0.5 MG TABLET PO PRN (15:00)
[2022-08-06] MEDS: ESCITALOPRAM OXALATE 10 MG TABLET PO SCH (10:05)
[2022-08-06] MEDS: busPIRone HCL 10 MG TABLET (FP) PO SCH (10:05)
[2022-08-06] MEDS: clonazePAM 0.5 MG TABLET PO PRN (16:02)
[2022-08-07] MEDS: ESCITALOPRAM OXALATE 10 MG TABLET PO SCH (11:52)
[2022-08-07] MEDS: busPIRone HCL 10 MG TABLET (FP) PO SCH (11:53)
[2022-08-07] MEDS: clonazePAM 0.5 MG TABLET PO PRN (12:18)
[2022-08-07] MEDS ORDERED: clonazePAM 0.5 MG TABLET PO ONE (22:00)
[2022-08-08] MEDS: ESCITALOPRAM OXALATE 10 MG TABLET PO SCH (09:24)
[2022-08-08] MEDS: busPIRone HCL 10 MG TABLET (FP) PO SCH (09:24)
[2022-08-08] MEDS: clonazePAM 0.5 MG TABLET PO PRN ×2 (11:21→21:56)
[2022-08-09] MEDS: busPIRone HCL 10 MG TABLET (FP) PO SCH (10:51)
[2022-08-09] MEDS: ESCITALOPRAM OXALATE 10 MG TABLET PO SCH (10:52)
[2022-08-09] MEDS ORDERED: HALOPERIDOL 5 MG TABLET PO PRN (16:59)
[2022-08-09] MEDS: clonazePAM 0.5 MG TABLET PO PRN (19:05)
[2022-08-09] MEDS: MELATONIN 5 MG TABLETS PO PRN (21:16)
[2022-08-10] MEDS: ESCITALOPRAM OXALATE 10 MG TABLET PO SCH (11:10)
[2022-08-10] MEDS: busPIRone HCL 10 MG TABLET (FP) PO SCH (11:10)
[2022-08-10] MEDS: HALOPERIDOL 5 MG TABLET PO PRN (22:41)
[2022-08-11] MEDS: busPIRone HCL 10 MG TABLET (FP) PO SCH (10:21)
[2022-08-11] MEDS: ESCITALOPRAM OXALATE 10 MG TABLET PO SCH (10:21)
[2022-08-11] MEDS: HALOPERIDOL 5 MG TABLET PO PRN (10:21)
[2022-08-11] MEDS ORDERED: HALOPERIDOL LACTATE 5 MG/ML IM ONE (18:07)
[2022-08-12] MEDS: busPIRone HCL 10 MG TABLET (FP) PO SCH (10:03)
[2022-08-12] MEDS: HALOPERIDOL 5 MG TABLET PO PRN (10:03)
[2022-08-12] MEDS: ESCITALOPRAM OXALATE 10 MG TABLET PO SCH (10:03)
[2022-08-12 21:46] VITALS: BMI 24.2
[2022-08-13] MEDS: busPIRone HCL 10 MG TABLET (FP) PO SCH (09:19)
[2022-08-13] MEDS: ESCITALOPRAM OXALATE 10 MG TABLET PO SCH ×2 (09:19→09:22)
[2022-08-13] MEDS ORDERED: ONDANSETRON *ODT* 4 MG TABLET SL ONE (18:18)
[2022-08-13] MEDS: MELATONIN 5 MG TABLETS PO PRN (21:54)
[2022-08-14] MEDS: ESCITALOPRAM OXALATE 10 MG TABLET PO SCH (09:46)
[2022-08-14] MEDS: busPIRone HCL 10 MG TABLET (FP) PO SCH (09:46)
[2022-08-14] MEDS: HALOPERIDOL 5 MG TABLET PO PRN (13:58)
[2022-08-14] MEDS ORDERED: MAG HYDROX/AL HYDROX/SIMETH 30 ML UNIT-DOSE CUP PO PRN (20:29)
[2022-08-14] MEDS: MELATONIN 5 MG TABLETS PO PRN (21:34)
[2022-08-15] MEDS: busPIRone HCL 10 MG TABLET (FP) PO SCH (10:26)
[2022-08-15] MEDS: ESCITALOPRAM OXALATE 10 MG TABLET PO SCH (10:26)
[2022-08-15] MEDS: HALOPERIDOL 5 MG TABLET PO PRN (13:24)
[2022-08-15 18:33] VITALS: RESP 18
[2022-08-15] MEDS: MELATONIN 5 MG TABLETS PO PRN (21:49)
[2022-08-16] MEDS: busPIRone HCL 10 MG TABLET (FP) PO SCH (10:18)
[2022-08-16] MEDS: ESCITALOPRAM OXALATE 10 MG TABLET PO SCH (10:18)
[2022-08-16] MEDS: MELATONIN 5 MG TABLETS PO PRN (20:58)
[2022-08-17] MEDS: ESCITALOPRAM OXALATE 10 MG TABLET PO SCH (10:33)
[2022-08-17] MEDS: busPIRone HCL 10 MG TABLET (FP) PO SCH (10:33)
[2022-08-17 12:21] VITALS: BP 162/84; PULSE 80; TEMP 98.6
== END 2022-08-17 12:30 ==
LOC: JER 11:43 → JERBED 17:22 → J4W 21:28 → J5S 08-03 21:16
PROVIDERS: ADMIT Internal Medicine; ATTEND Internal Medicine
PROC: 3E03329 Introduction of Other Anti-infective into Peripheral Vein, Percutaneous Approach (ICD-10-PCS; principal; 2022-07-25)
PROC: 3E023GC Introduction of Other Therapeutic Substance into Muscle, Percutaneous Approach (ICD-10-PCS; 2022-07-25)
PROC: 3E033NZ Introduction of Analgesics, Hypnotics, Sedatives into Peripheral Vein, Percutaneous Approach (ICD-10-PCS; 2022-07-25)
PROC: 3E03329 Introduction of Other Anti-infective into Peripheral Vein, Percutaneous Approach (ICD-10-PCS; 2022-07-25)
DX: G20 Parkinson's disease (principal); F41.0 Panic disorder [episodic paroxysmal anxiety]; F32.A Depression, unspecified; K58.9 Irritable bowel syndrome, unspecified; R55 Syncope and collapse; M25.511 Pain in right shoulder; R41.0 Disorientation, unspecified; M25.551 Pain in right hip; W18.39XA Other fall on same level, initial encounter; Y93.89 Activity, other specified; E21.3 Hyperparathyroidism, unspecified; Y92.008 Other place in unspecified non-institutional (private) residence as the place of occurrence of the external cause; Z91.040 Latex allergy status; D64.9 Anemia, unspecified; Z88.6 Allergy status to analgesic agent
CPT/HCPCS: 0241U-QW; 36415; 70450-TC; 71045-TC-FY; 72125-TC; 72192-TC; 73030-TC-RT-FY; 73564-TC-RT-FY; 80053; 80061; 81003; 83735; 84132; 84443; 84484; 85025; 85610; 85730; 87086; 93005; 93010; 93306-TC; 93880-TC; 96365; 96372; 96375; 97116-GP; 97162-GP; 99285-25; C9803-CS; G0378; U0003; U0005

== ENCOUNTER 2022-08-18 20:20 | Observation (INO) | payer OTHER, MEDICARE ==
[2022-08-18 22:36] LABS: CALCIUM 9.7 mg/dL (8.5-10.1)
[2022-08-18 22:37] LABS: ALBUMIN 4.1 g/dl (3.4-5.0); BLOOD UREA NITROGEN 14.8 mg/dL (7-18)
[2022-08-18 22:39] LABS: HEMATOCRIT 39.6 % (32.4-45.2); HEMOGLOBIN 12.1 GM/dL (10.7-15.3); MCH 20.7 pg (25.7-33.7); MCHC 30.4 g/dl (32.0-36.0); RBC 5.83 M/mm3 (3.60-5.2); RDW 17.4 % (11.6-15.6)
[2022-08-18 22:40] LABS: BILIRUBIN,TOTAL 0.6 mg/dL (0.2-1); CREATININE 0.7 mg/dL (0.55-1.3)
[2022-08-18 22:42] LABS: TOT PROT 6.8 g/dl (6.4-8.2)
[2022-08-18] MEDS ORDERED: LORazepam 2 MG/ML SDV VIAL IVPUSH ONE (23:00)
[2022-08-18 23:19] LABS: MEAN PLT VOLUME 10.8 fl (7.5-11.1); PLATELET COUNT 141 10^3/uL (134-434)
[2022-08-19] MEDS ORDERED: SODIUM CHLORIDE 0.9% 500 ML INFUS.BAG IV ONE (03:27)
[2022-08-19 12:40] LABS: PH,URINE 5.5 (5.0-8.0); URINE APPEARANCE CLEAR; URINE BILIRUBIN NEGATIVE (NEGATIVE); URINE COLOR YELLOW; URINE GLUCOSE (UA) NEGATIVE (NEGATIVE); URINE KETONE TRACE (NEGATIVE); URINE LEUK ESTERASE NEGATIVE (NEGATIVE); URINE NITRITE NEGATIVE (NEGATIVE); URINE PROTEIN TRACE (NEGATIVE)
[2022-08-19] MEDS ORDERED: LORazepam 2 MG/ML SDV VIAL IVPB ONE (19:57)
[2022-08-20] MEDS ORDERED: ESCITALOPRAM OXALATE 10 MG TABLET PO SCH (10:00)
[2022-08-20] MEDS ORDERED: busPIRone HCL 10 MG TABLET (FP) PO SCH (10:00)
[2022-08-20] MEDS ORDERED: MULTIVITAMINS (DAILY MVI) TABLET (FP) PO SCH (10:00)
[2022-08-20] MEDS ORDERED: busPIRone HCL 5 MG TABLET PO SCH (11:25)
[2022-08-20] MEDS ORDERED: MULTIVITAMINS (DAILY MVI) TABLET (FP) ONE (11:48)
[2022-08-20] MEDS ORDERED: ESCITALOPRAM OXALATE 10 MG TABLET ONE (11:48)
[2022-08-20] MEDS ORDERED: busPIRone HCL 5 MG TABLET ONE (11:48)
[2022-08-20 15:36] VITALS: BMI 22.6
[2022-08-20] MEDS ORDERED: MELATONIN 5 MG TABLETS PO PRN (19:57)
[2022-08-21] MEDS: MULTIVITAMINS (DAILY MVI) TABLET (FP) PO SCH (09:22)
[2022-08-21] MEDS: busPIRone HCL 5 MG TABLET PO SCH (09:22)
[2022-08-21] MEDS: ESCITALOPRAM OXALATE 10 MG TABLET PO SCH (09:22)
[2022-08-21] MEDS: HEPARIN NA (PORCINE) 5,000 UNITS/ML 1ML VIAL SQ SCH ×2 (12:06→22:00)
[2022-08-22 05:24] VITALS: RESP 18
[2022-08-22] MEDS: busPIRone HCL 5 MG TABLET PO SCH (10:58)
[2022-08-22] MEDS: MULTIVITAMINS (DAILY MVI) TABLET (FP) PO SCH (10:58)
[2022-08-22] MEDS: ESCITALOPRAM OXALATE 10 MG TABLET PO SCH (10:59)
[2022-08-22] MEDS: HEPARIN NA (PORCINE) 5,000 UNITS/ML 1ML VIAL SQ SCH (10:59)
[2022-08-22 14:10] VITALS: BP 121/59; PULSE 77; TEMP 99.2
== END 2022-08-22 14:36 ==
LOC: JER 20:20 → JERBED 08-19 03:28 → J6S 08-20 15:07
PROVIDERS: ADMIT Internal Medicine; ATTEND Internal Medicine
PROC: 3E0333Z Introduction of Anti-inflammatory into Peripheral Vein, Percutaneous Approach (ICD-10-PCS; principal; 2022-08-19)
PROC: 3E0337Z Introduction of Electrolytic and Water Balance Substance into Peripheral Vein, Percutaneous Approach (ICD-10-PCS; 2022-08-19)
DX: R55 Syncope and collapse (principal); D64.9 Anemia, unspecified; E21.3 Hyperparathyroidism, unspecified; K58.9 Irritable bowel syndrome, unspecified; W18.39XA Other fall on same level, initial encounter; Y93.89 Activity, other specified; Y92.89 Other specified places as the place of occurrence of the external cause; F03.90 Unspecified dementia, unspecified severity, without behavioral disturbance, psychotic disturbance, mood disturbance, and anxiety; Z88.6 Allergy status to analgesic agent; Z91.040 Latex allergy status
CPT/HCPCS: 36415; 70450-TC; 70486-TC; 71045-TC-FY; 80053; 81003; 84484; 85027; 87086; 93005; 93010; 96361; 96374; 96376; 97116-GP; 97162-GP; 99285-25; C9803-CS; G0378; U0003; U0005

== ENCOUNTER 2024-05-09 18:31 | Emergency (ER) | payer OTHER ==
[2024-05-09 19:19] VITALS: BP 132/80; PULSE 92; RESP 18; TEMP 99.1; BMI 20.5
[2024-05-09] MEDS ORDERED: ACETAMINOPHEN INJECTION 100 ML ONE (20:49)
[2024-05-09] MEDS: ACETAMINOPHEN 1000 MG/100 ML BAG IVPB ONE (20:54)
[2024-05-09 20:57] LABS: BASO % 1.1 % (0-2.0); EOS % 0.5 % (0-4.5); HEMATOCRIT 37.6 % (32.4-45.2); HEMOGLOBIN 11.9 GM/dL (10.7-15.3); LYMPH % 25.1 % (8-40); MCH 20.8 pg (25.7-33.7); MCHC 31.8 g/dl (32.0-36.0); MEAN CELL VOLUME 65.4 fl (80-96); MEAN PLT VOLUME 9.3 fl (7.5-11.1); MONO % 10.5 % (3.8-10.2); NEUT % 62.8 % (42.8-82.8); PLATELET COUNT 99 10^3/uL (134-434); RBC 5.75 M/mm3 (3.60-5.2); RDW 16.4 % (11.6-15.6); WHITE BLOOD COUNT 5.4 K/mm3 (4.0-10.0)
[2024-05-09 21:44] LABS: POTASSIUM 3.9 mmol/L (3.5-5.1)
[2024-05-09 21:46] LABS: CALCIUM 8.9 mg/dL (8.5-10.1)
[2024-05-09 21:47] LABS: ALBUMIN 3.6 g/dl (3.4-5.0); BLOOD UREA NITROGEN 20.2 mg/dL (7-18)
[2024-05-09 21:50] LABS: CREATININE 0.7 mg/dL (0.55-1.3)
[2024-05-09 21:52] LABS: BILIRUBIN,TOTAL 0.6 mg/dL (0.2-1); TOT PROT 6.7 g/dl (6.4-8.2)
[2024-05-09 21:55] LABS: N-TERMINAL BNP 1011.9 pg/ml (5-450)
[2024-05-09 23:22] LABS: ANISOCYTOSIS 3+; MACROCYTOSIS 0; OVALOCYTE 1+; ROULEAU 1+; TEAR DROP CELLS 2+
== END 2024-05-10 12:55 ==
LOC: JER 18:31
PROC: 3E033NZ Introduction of Analgesics, Hypnotics, Sedatives into Peripheral Vein, Percutaneous Approach (ICD-10-PCS; principal; 2024-05-09)
DX: U07.1 COVID-19 (principal)
CPT/HCPCS: 0241U-QW; 36415; 71045-TC-FY; 80053; 83880; 84484; 85025; 93005; 93010; 96374; 99285-25; J0131

== ENCOUNTER 2024-06-28 22:25 | Emergency (ER) | payer OTHER ==
[2024-06-28 22:51] VITALS: BMI 20.5
[2024-06-28] MEDS ORDERED: ONDANSETRON 4 MG/2 ML VIAL ONE (23:14)
[2024-06-28] MEDS: SODIUM CHLORIDE 0.9% 500 ML INFUS.BAG IV ONE (23:30)
[2024-06-28] MEDS: ONDANSETRON 4 MG/2 ML VIAL IVPUSH ONE (23:30)
[2024-06-28 23:45] LABS: HEMATOCRIT 37.5 % (32.4-45.2); HEMOGLOBIN 11.7 GM/dL (10.7-15.3); MCH 20.7 pg (25.7-33.7); MCHC 31.3 g/dl (32.0-36.0); MEAN CELL VOLUME 66.2 fl (80-96); RBC 5.67 M/mm3 (3.60-5.2); RDW 16.9 % (11.6-15.6); WHITE BLOOD COUNT 9.7 K/mm3 (4.0-10.0)
[2024-06-28 23:47] LABS: ADD RBC MORPHOLOGY YES
[2024-06-29 00:04] LABS: POTASSIUM 3.4 mmol/L (3.5-5.1)
[2024-06-29 00:06] LABS: ALBUMIN 3.8 g/dl (3.4-5.0); BLOOD UREA NITROGEN 16.8 mg/dL (7-18); CALCIUM 8.9 mg/dL (8.5-10.1)
[2024-06-29 00:10] LABS: CREATININE 0.6 mg/dL (0.55-1.3)
[2024-06-29 00:11] LABS: BILIRUBIN,TOTAL 0.9 mg/dL (0.2-1); TOT PROT 6.2 g/dl (6.4-8.2)
[2024-06-29 00:18] LABS: MAGNESIUM 1.7 mg/dL (1.8-2.4)
[2024-06-29 01:15] VITALS: BP 122/43; PULSE 79; RESP 18; TEMP 98.9
[2024-06-29 01:31] LABS: ANISOCYTOSIS 2+; MACROCYTOSIS 0
[2024-06-29 01:32] LABS: PLATELET COUNT 87 10^3/uL (134-434)
== END 2024-06-29 02:54 | disposition home or self-care (01) ==
LOC: JER 22:25
PROC: 3E033GC Introduction of Other Therapeutic Substance into Peripheral Vein, Percutaneous Approach (ICD-10-PCS; principal; 2024-06-28)
DX: R11.2 Nausea with vomiting, unspecified (principal); R19.7 Diarrhea, unspecified; R50.9 Fever, unspecified; R07.89 Other chest pain; R53.1 Weakness
CPT/HCPCS: 36415; 71045-TC-FY; 80053; 83690; 83735; 84484; 85025; 93005; 93010; 96374; 99285-25

== ENCOUNTER 2024-09-01 03:58 | Day surgery (SDC) | payer OTHER ==
[2024-08-29 09:34] VITALS: BMI 20.2
[~2024-09-01 03:58] MED LIST changes: -BUPIVACAINE HCL/PF 0.75% 10 ML VIAL NR ONE; -DEXAMETHASONE SOD PHOSPHATE 10 MG/1 ML VIAL IM ONE; -IOHEXOL 180 MG/1 ML ML IJ ONE; +LACTATED RINGERS SOLUTION 1,000 ML IV SCH; -LIDOCAINE HCL/PF 2% SDV 5ML VIAL INF ONE; +ONDANSETRON 4 MG/2 ML VIAL IVPUSH PRN; +oxyCODONE HCL 5 MG TABLET PO PRN
[2024-09-01] MEDS ORDERED: KETOROLAC TROMETHAMINE 30 MG/1 ML VIAL ONE (11:44)
[2024-09-01] MEDS ORDERED: MIDAZOLAM HCL 2 MG/2 ML SINGLE DOSE VIAL ONE (11:44)
[2024-09-01] MEDS ORDERED: DEXAMETHASONE SOD PHOSPHATE 4 MG/1 ML VIAL ONE (11:45)
[2024-09-01] MEDS ORDERED: ONDANSETRON 4 MG/2 ML VIAL ONE (11:45)
[2024-09-01] MEDS ORDERED: PROPOFOL 20 ML ONE (11:47)
[2024-09-01] MEDS ORDERED: ceFAZolin SODIUM 1 GM VIAL ONE (12:17)
[2024-09-01 14:30] VITALS: RESP 20; TEMP 97.3
[2024-09-01 14:32] VITALS: BP 145/57; PULSE 60
== END 2024-09-01 14:22 | disposition home or self-care (01) ==
LOC: JASU-SURG 03:58
PROVIDERS: ATTEND Urology
PROC: 0TJB8ZZ Inspection of Bladder, Via Natural or Artificial Opening Endoscopic (ICD-10-PCS; principal; 2024-09-01 11:00)
DX: N39.41 Urge incontinence (principal); N32.81 Overactive bladder
CPT/HCPCS: 94760